=== PATIENT | female | born 1990 | race Caucasian/White ===

== ENCOUNTER 2017-05-20 07:37 | Outpatient (CLI) | payer OTHER, BC ==
--- NOTE | 2017-05-20 09:13 | ULT ---
COMPLETE ABDOMINAL ULTRASOUND: HISTORY: Right upper quadrant abdominal pain. TECHNIQUE: Multiplanar, motta scale, and color Doppler images were obtained in a complete abdominal ultrasound. FINDINGS: The liver is normal in echogenicity without focal lesions or intrahepatic ductal dilatation. The gal lbladder has been removed. The common bile duct is normal measuring 3 mm. The aorta and inferior vena cava are normal in caliber. The visualized portions of the pancreas are unremarkable. The spleen is normal in echogenicity without focal lesion and measures 11.7 cm in [place] th. Both kidneys are normal in echogenicity without hydronephrosis or calculi and measure 9.9 and 11.0 cm in length on the right and left, respectively. IMPRESSION: No significant abnormality. POS: [facility]ON[facility]
== END 2017-05-20 07:38 | disposition home or self-care (01) ==
LOC: ULT 07:37
PROVIDERS: ATTEND Family Medicine
DX: R10.11 Right upper quadrant pain (principal)
CPT/HCPCS: 76700